=== PATIENT | female | born 1950 | race Caucasian/White ===

== ENCOUNTER → 2018-01-26 | Outpatient (CLI) | payer OTHER | END | disposition home or self-care (01) | LOC: STAR 09:05 | PROVIDERS: ATTEND Obstetrics & Gynecology | DX: Z01.818 Encounter for other preprocedural examination (principal); N84.0 Polyp of corpus uteri; N95.0 Postmenopausal bleeding | CPT/HCPCS: 93005 ==

== ENCOUNTER 2018-02-02 08:18 | Day surgery (SDC) | payer MEDICARE, OTHER ==
[~2018-02-02] VITALS: Ht 162.6 cm; Wt 83.8 kg
[2018-02-02 08:44] VITALS: BP 128/80
[2018-02-02] MEDS ORDERED: LACTATED RINGERS 1,000 ML IV SCH (08:47)
[2018-02-02] MEDS ORDERED: MIDAZOLAM 1 MG/ML, 2ML ONE (09:16)
[2018-02-02] MEDS ORDERED: FENTANYL PF 250 MCG/5ML ONE (09:16)
[2018-02-02] MEDS ORDERED: PROPOFOL 10 MG/ML, 20ML ONE (09:17)
[2018-02-02] MEDS ORDERED: DEXAMETHASONE 4 MG/ML, 1ML ONE ×2 (09:19)
[2018-02-02] MEDS ORDERED: ONDANSETRON 2MG/ML, 2ML ONE (09:20)
[2018-02-02] MEDS ORDERED: CEFAZOLIN 1,000 MG ONE ×2 (09:30)
[2018-02-02] MEDS ORDERED: WATER-INJECTION,STERILE 10 ML IV ONE (09:30)
[2018-02-02] MEDS ORDERED: PROMETHAZINE 25 MG SUPP PR PRN (10:00)
[2018-02-02] MEDS ORDERED: FENTANYL PF 100 MCG/2ML IV PRN (10:00)
[2018-02-02] MEDS ORDERED: OXYcodone 5 MG/5 ML ORAL.SOL UDC PO PRN (10:00)
[2018-02-02] MEDS ORDERED: ACETAMINOPHEN 325 MG TABLET PO PRN (10:00)
[2018-02-02] MEDS ORDERED: PROMETHAZINE 12.5 MG SUPP PR PRN (10:00)
[2018-02-02] MEDS ORDERED: hydrALAzine 20 MG/ML, 1ML IV PRN (10:00)
[2018-02-02] MEDS ORDERED: HYDROmorphone 1 MG/ML, 1ML IV PRN (10:00)
[2018-02-02] MEDS ORDERED: PROMETHAZINE 25 MG/ML, 1ML IV PRN (10:00)
[2018-02-02] MEDS ORDERED: MORPHINE SULFATE 4 MG/ML, 1ML IVPush PRN (10:00)
[2018-02-02] MEDS ORDERED: MEPERIDINE/PF 25MG/0.5ML IVPush PRN (10:00)
[2018-02-02] MEDS ORDERED: ONDANSETRON ODT 8 MG PO PRN (10:00)
[2018-02-02] MEDS ORDERED: LABETALOL 5MG/ML, 20ML IV PRN (10:00)
[2018-02-02] MEDS ORDERED: ONDANSETRON 2MG/ML, 2ML IV PRN (10:00)
[2018-02-02] MEDS ORDERED: KETOROLAC 30 MG/1 ML ONE ×2 (10:19)
[2018-02-02] MEDS ORDERED: ACETAMINOPHEN 650 MG/20.3 ML UDC ONE (10:48)
[2018-02-02] MEDS ORDERED: OXYcodone 5 MG/5 ML ORAL.SOL UDC ONE (10:49)
== END 2018-02-02 13:05 | disposition home or self-care (01) ==
LOC: OUT 08:18
PROVIDERS: ATTEND Obstetrics & Gynecology
DX: N84.0 Polyp of corpus uteri (principal); Z98.51 Tubal ligation status; Z88.2 Allergy status to sulfonamides; E66.9 Obesity, unspecified; Z68.31 Body mass index [BMI] 31.0-31.9, adult; Z72.89 Other problems related to lifestyle; Z98.890 Other specified postprocedural states; Z98.49 Cataract extraction status, unspecified eye; Z82.49 Family history of ischemic heart disease and other diseases of the circulatory system
CPT/HCPCS: 58558; 88305; J0690; J1100; J1885; J2250; J2405; J2704; J3010; J7120

== ENCOUNTER 2020-11-06 13:34 | Outpatient (CLI) | payer MEDICARE | END 2020-11-06 23:59 | disposition home or self-care (01) | LOC: RAD 13:34 | PROVIDERS: ATTEND Family Medicine | DX: K80.21 Calculus of gallbladder without cholecystitis with obstruction (principal); D72.829 Elevated white blood cell count, unspecified; R10.31 Right lower quadrant pain | CPT/HCPCS: 74181 ==

== ENCOUNTER 2021-01-14 06:54 | Day surgery (SDC) | payer MEDICARE ==
[~2021-01-14] VITALS: Ht 162.6 cm; Wt 86.1 kg
[~2021-01-14 06:54] MED LIST: ASCO250T12 PO; CHOL10003 PO; GLUTATHIONE; PREG25CA PO; UBID200C35 PO
[2021-01-14 07:48] VITALS: BP 130/78
[2021-01-14] MEDS ORDERED: INDOCYANINE GREEN 25 MG VIAL ONE (07:53)
[2021-01-14] MEDS ORDERED: FENTANYL PF 100 MCG/2ML ONE ×4 (07:56→11:08)
[2021-01-14] MEDS ORDERED: MIDAZOLAM 1 MG/ML, 2ML ONE (07:58)
[2021-01-14] MEDS ORDERED: LACTATED RINGERS 1,000 ML IV SCH (08:00)
[2021-01-14] MEDS ORDERED: INDOCYANINE GREEN 25 MG VIAL IVPush ONE (08:00)
[2021-01-14] MEDS ORDERED: CHLORHEXIDINE 15 ML UDC PO ONE (08:00)
[2021-01-14] MEDS ORDERED: KETOROLAC 30 MG/1 ML ONE (08:13)
[2021-01-14] MEDS ORDERED: LIDOCAINE-MPF 2% ,5ML ONE (08:13)
[2021-01-14] MEDS ORDERED: ONDANSETRON 2MG/ML, 2ML ONE (08:13)
[2021-01-14] MEDS ORDERED: SUGAMMADEX 200 MG/2 ML IVPush ONE (08:13)
[2021-01-14] MEDS ORDERED: PROPOFOL 10 MG/ML, 20ML ONE (08:13)
[2021-01-14] MEDS ORDERED: SUCCINYLCHOLINE 20 MG/ML, 10ML ONE (08:13)
[2021-01-14] MEDS ORDERED: CEFOTETAN 2 GM ONE ×2 (08:13→09:05)
[2021-01-14] MEDS ORDERED: ROCURONIUM 10MG/ML,5ML ONE (08:13)
[2021-01-14] MEDS ORDERED: BUPIVACAINE/PF 0.5% ONE (08:29)
[2021-01-14] MEDS ORDERED: EPINEPHRINE 1 MG/ML, 1ML ONE (08:29)
[2021-01-14] MEDS ORDERED: LABETALOL 5MG/ML, 20ML IV PRN (08:30)
[2021-01-14] MEDS ORDERED: EPHEDRINE 50 MG/ML, 1ML IVPush PRN (08:30)
[2021-01-14] MEDS ORDERED: hydrALAzine 20 MG/ML, 1ML IV PRN (08:30)
[2021-01-14] MEDS ORDERED: ACETAMINOPHEN 325 MG TABLET PO PRN (08:30)
[2021-01-14] MEDS ORDERED: ONDANSETRON 2MG/ML, 2ML IVPush PRN (08:30)
[2021-01-14] MEDS ORDERED: PROMETHAZINE 25 MG/ML, 1ML IVPush PRN (08:30)
[2021-01-14] MEDS ORDERED: OXYcodone 5 MG/5 ML ORAL.SOL UDC PO PRN (08:30)
[2021-01-14] MEDS ORDERED: EPHEDRINE 50 MG/ML, 1ML ONE (09:11)
[2021-01-14] MEDS ORDERED: OXYcodone 5 MG/5 ML ORAL.SOL UDC ONE (10:46)
[2021-01-14] MEDS ORDERED: HYDR-2214 PO (10:46)
[2021-01-14] MEDS ORDERED: ONDA4TAB7 PO (10:46)
[2021-01-14] MEDS: FENTANYL PF 100 MCG/2ML IV PRN ×4 (10:48→11:17)
[2021-01-14] MEDS ORDERED: HYDROmorphone 1 MG/ML, 1ML INJ ONE ×2 (11:01→11:08)
[2021-01-14] MEDS: HYDROmorphone 1 MG/ML, 1ML INJ IVPush PRN ×3 (11:04→11:18)
[2021-01-14] MEDS ORDERED: ACETAMINOPHEN 650 MG/20.3 ML UDC ONE (11:19)
== END 2021-01-14 14:15 | disposition home or self-care (01) ==
LOC: OUT 06:54 → EDSTATUS 09:30 → OUT 14:15
PROVIDERS: ATTEND Surgery
DX: K80.10 Calculus of gallbladder with chronic cholecystitis without obstruction (principal); K42.9 Umbilical hernia without obstruction or gangrene; K66.0 Peritoneal adhesions (postprocedural) (postinfection); E66.9 Obesity, unspecified; Z68.33 Body mass index [BMI] 33.0-33.9, adult; Z79.899 Other long term (current) drug therapy; Z88.2 Allergy status to sulfonamides
CPT/HCPCS: 47562; 49585; 88304; 93005; J0171; J0330; J1170; J1885; J2250; J2405; J2704; J3010; J7120